=== PATIENT | female | born 1995 | race Caucasian/White ===

== ENCOUNTER 2017-04-07 08:03 | Emergency (ER) | payer OTHER ==
[~2017-04-07] VITALS: Ht 165.1 cm; Wt 92.9 kg
[~2017-04-07 08:03] MED LIST: ADVIL200 MG PO; GENERESS FE CH1 EACH; LAYOLIS FE CHE1 EACH PO; MOTRIN800 MG PO; MUCINEX DM ER1 EACH PO; ZOFRAN ODT8 MG PO
[2017-04-07 08:05] VITALS: BP 128/74
== END 2017-04-07 10:15 | disposition left against medical advice (07) ==
LOC: EME 08:03
DX: R05 Cough (principal); Z53.21 Procedure and treatment not carried out due to patient leaving prior to being seen by health care provider